=== PATIENT | male | born 1960 | race American Indian/Alaskan Native ===

== ENCOUNTER 2018-11-18 20:06 | Emergency (ER) | payer SELFPAY ==
[2018-11-18 21:00] LABS: Basophils % (Auto) 0.5 % (0.0-1.8); Eosinophils # (Auto) 0.2 K/mm3 (0.0-0.4); Eosinophils % (Auto) 2.8 % (0.0-4.3); Hemoglobin 13.9 gm/dl (11.8-15.2); Lymphocytes # (Auto) 1.7 K/mm3 (1.2-5.4); Lymphocytes % (Auto) 22.8 % (13.4-35.0); Mean Corpuscular HGB Conc 33 % (32-34); Mean Corpuscular Volume 98 fl (84-94); Monocytes # (Auto) 0.6 K/mm3 (0.0-0.8); Monocytes % (Auto) 8.4 % (0.0-7.3); Platelet Count 279 K/mm3 (140-440); Red Blood Count 4.28 M/mm3 (3.65-5.03)
[2018-11-18 21:23] LABS: Alanine Aminotransferase 18 units/L (7-56); Albumin 4.5 g/dL (3.9-5); BUN/Creatinine Ratio 27; Blood Urea Nitrogen 19 mg/dL (9-20); Calcium 9.5 mg/dL (8.4-10.2); Hemolysis Index 15
--- NOTE | 2018-11-18 22:35 | Emergency Department Report ---
ED General Adult HPI - General Chief complaint: Pain General Stated complaint: CLOGGED FEEDING TUBE Source: patient, EMS Mode of arrival: Stretcher Limitations: Other - History of Present Illness Initial comments: Patient is a 63-year-old -[place] male with a history of chronic osteoarthritis and leg pain, previous CVA and was PEG tube for parenteral feeding presents to the ED via EMS complaining of a clogged PEG tube and worsening lower extremity pain especially his knee joints. Patient states that he walks a lot since he has no place to sleep. Patient denies chest pain, abdominal pain, nausea, vomiting, dizziness, headache, change in vision, cough, traumatic injury or fall. Patient admits to having been drinking alcohol prior to arrival via EMS. MD Complaint: Clogged PEG tube -: Gradual, hour(s) (1) Location: abdomen, lower extremity Radiation: non-radiation Severity scale (0 -10): 2 Quality: dull Consistency: constant Improves with: none Worsens with: none Associated Symptoms: denies other symptoms. denies: confusion, chest pain, cough, diaphoresis, fever/chills, headaches, loss of appetite, malaise, nausea/vomiting, seizure, shortness of breath, syncope Treatments Prior to Arrival: none - Related Data Allergies Allergy/AdvReac Type Severity Reaction Status Date / Time No Known Allergies Allergy Unverified 11/18/18 20:29 ED Review of Systems ROS: Stated complaint: CLOGGED FEEDING TUBE Other details as noted in HPI Constitutional: denies: chills, fever Eyes: denies: eye pain, eye discharge, vision change ENT: denies: ear pain, throat pain Respiratory: denies: cough, shortness of breath, wheezing Cardiovascular: denies: chest pain, palpitations Endocrine: no symptoms reported Gastrointestinal: other (Clogged PEG tube). denies: abdominal pain, nausea, diarrhea Genitourinary: denies: urgency, dysuria Musculoskeletal: other (Bilateral leg pain, chronic). denies: back pain, joint swelling, arthralgia Skin: denies: rash, lesions Neurological: denies: headache, weakness, paresthesias Psychiatric: denies: anxiety, depression Hematological/Lymphatic: denies: easy bleeding, easy bruising ED Past Medical Hx - Past Medical History Previous Medical History?: Yes Hx Hypertension: Yes - Surgical History Past Surgical History?: No - Social History Smoking Status: Never Smoker Substance Use Type: Alcohol ED Physical Exam - General Limitations: Other General appearance: alert, in no apparent distress - Head Head exam: Present: atraumatic, normocephalic, normal inspection - Eye Eye exam: Present: normal appearance, PERRL, EOMI. Absent: conjunctival injection, nystagmus, periorbital swelling, periorbital tenderness Pupils: Present: normal accommodation - ENT ENT exam: Present: normal exam, normal orophraynx, mucous membranes moist, TM's normal bilaterally, normal external ear exam - Neck Neck exam: Present: normal inspection, full ROM. Absent: tenderness, meningismus, lymphadenopathy - Respiratory Respiratory exam: Present: normal lung sounds bilaterally. Absent: respiratory distress, wheezes, rales, stridor, chest wall tenderness, decreased breath sounds, prolonged expiratory - Cardiovascular Cardiovascular Exam: Present: regular rate, normal rhythm, normal heart sounds. Absent: systolic murmur, diastolic murmur, rubs, gallop - GI/Abdominal GI/Abdominal exam: Present: soft, normal bowel sounds, other (Patent PEG tube, flushing normally with no blockage). Absent: distended, tenderness, guarding, rebound - Rectal Rectal exam: Present: deferred - Extremities Exam Extremities exam: Present: normal inspection, full ROM, normal capillary refill - Back Exam Back exam: Present: normal inspection, full ROM. Absent: tenderness, CVA tenderness (R), CVA tenderness (L), muscle spasm, paraspinal tenderness - Neurological Exam Neurological exam: Present: alert, oriented X3, CN II-XII intact, normal gait, reflexes normal - Psychiatric Psychiatric exam: Present: normal affect, normal mood - Skin Skin exam: Present: warm, dry, intact, normal color. Absent: rash ED Course Vital Signs 11/18/18 20:20 Temperature 98.7 F Pulse Rate 86 Respiratory 12 Rate Blood Pressure 137/82 Blood Pressure 137/82 [Right] O2 Sat by Pulse 99 Oximetry - Reevaluation(s) Reevaluation #1: 11/18/18 22:36 This is a 63-year-old male who presented to the ED with complaint of persistent bilateral lower extremity pain which is chronic from an old stroke and osteoarthritis. Patient also came to the ED complaining of clogged PEG tube. In the ED, patient is alert and oriented 3 and is not in any distress, appears intoxicated on alcohol and asking for food. The PEG tube was flushed repeatedly, and it flashed normally with no blockage. Patient was treated for pain and basic lab test results are nonactionable including alcohol level. Patient was given food to eat and observed briefly in the ED, and was regan bsequently discharged. Patient was advised to follow-up with his primary care physician in 5-7 days for reevaluation or return to the ED immediately if symptoms get worse. ED Medical Decision Making - Lab Data Result diagrams: 11/18/18 20:48 11/18/18 20:48 - Medical Decision Making This is a 63-year-old male who presented to the ED with complaint of persistent bilateral lower extremity pain which is chronic from an old stroke and osteoarthritis. Patient also came to the ED complaining of clogged PEG tube. In the ED, patient is alert and oriented 3 and is not in any distress, appears intoxicated on alcohol and asking for food. The PEG tube was flushed repeatedly, and it flashed normally with no blockage. Patient was treated for pain and basic lab test results are nonactionable including alcohol level. Patient was given food to eat and observed briefly in the ED, and was subsequently discharged. Patient was advised to follow-up with his primary care physician in 5-7 days for reevaluation or return to the ED immediately if symptoms get worse. - Differential Diagnosis chronic osteoarthritis; Malfunctioned PEG tube Critical care attestation.: If time is entered above; I have spent that time in minutes in the direct care of this critically ill patient, excluding procedure time. ED Disposition Clinical Impression: Malfunction of percutaneous endoscopic gastrostomy (PEG) tube Chronic leg pain Qualifiers: Laterality: bilateral Qualified Code(s): M79.604 - Pain in right leg; M79.605 - Pain in left leg; G89.29 - Other chronic pain Disposition: - TO HOME OR SELFCARE Is pt being admited?: No Does the pt Need Aspirin: No Condition: Stable Instructions: Arthralgia (ED) Additional Instructions: Follow-up with your primary care physician in 5-7 days for reevaluation. Return to the ED immediately if symptoms get worse. Referrals: TERI YANG MD [Primary Care Provider] - 3-5 Days [facility] [Outside] - 3-5 Days Time of Disposition: 22:31 Print Language: MACEDONIAN
[2018-11-19 10:58] VITALS: BP 132/69
== END 2018-11-19 10:58 | disposition home or self-care (01) ==
LOC: EDBD 20:06 → ED 20:06
DX: K94.23 Gastrostomy malfunction (principal); M79.604 Pain in right leg; M79.605 Pain in left leg; G89.29 Other chronic pain; I10 Essential (primary) hypertension
CPT/HCPCS: 36415; 80053; 80320; 85025; G0480

== ENCOUNTER 2018-11-24 20:14 | Emergency (ER) | payer SELFPAY ==
--- NOTE | 2018-11-24 20:34 | Emergency Department Report ---
Blank Doc - Documentation Documentation: 58-year-old male that presents with abdominal pain in the G-tube placement. This initial assessment/diagnostic orders/clinical plan/treatment(s) is/are subject to change based on patient's health status, clinical progression and re- assessment by fellow clinical providers in the ED. Further treatment and workup at subsequent clinical providers discretion. Patient/guardians urged not to elope from the ED as their condition may be serious if not clinically assessed and managed. Initial orders include: 1- Patient sent to MAIN ED for further evaluation and treatment 2- labs 3- UA
[2018-11-24 21:36] LABS: Basophils % (Auto) 0.5 % (0.0-1.8); Eosinophils # (Auto) 0.3 K/mm3 (0.0-0.4); Eosinophils % (Auto) 4.4 % (0.0-4.3); Hematocrit 42.5 % (35.5-45.6); Hemoglobin 14.2 gm/dl (11.8-15.2); Lymphocytes # (Auto) 1.7 K/mm3 (1.2-5.4); Lymphocytes % (Auto) 24.6 % (13.4-35.0); Mean Corpuscular HGB Conc 33 % (32-34); Mean Corpuscular Volume 99 fl (84-94); Monocytes # (Auto) 0.7 K/mm3 (0.0-0.8); Monocytes % (Auto) 10.6 % (0.0-7.3); Platelet Count 241 K/mm3 (140-440); Red Blood Count 4.29 M/mm3 (3.65-5.03); Red Cell Distribution Width 14.9 % (13.2-15.2)
[2018-11-24 21:50] LABS: Alanine Aminotransferase 17 units/L (7-56); Albumin 4.3 g/dL (3.9-5); BUN/Creatinine Ratio 20; Blood Urea Nitrogen 14 mg/dL (9-20); Calcium 9.8 mg/dL (8.4-10.2); Hemolysis Index 22
[2018-11-24] MEDS ORDERED: ONDANSETRON 4 MG/2 ML INJ IV ONE (23:03)
[2018-11-24] MEDS ORDERED: CLINDAMYCIN 600 MG/50 mL 600 MG/50 ML BAG IV ONE (23:03)
[2018-11-24] MEDS ORDERED: MORPHINE 4 MG/1 ML INJ IV ONE (23:03)
--- NOTE | 2018-11-24 23:09 | Emergency Department Report ---
ED Abdominal Pain HPI - General Chief Complaint: Abdominal Pain Stated Complaint: ABDOMINAL PAIN Time Seen by Provider: 11/24/18 20:33 Source: patient, EMS Mode of arrival: Ambulatory Limitations: Physical Limitation, Other - History of Present Illness Initial Comments: Patient is 58 years old male with history of hypertension and dementia. Patient has a PEG tube. Patient presented to the ER complaining of abdominal pain for the last 2 weeks associated with redness and mild discharge around the tube. Patient denied any fever or chills. No nausea or vomiting. Then at other complaint. MD Complaint: abdominal pain Location: LUQ, LLQ Radiation: none Severity: moderate Severity scale (0 -10): 5 Consistency: intermittent - Related Data Allergies Allergy/AdvReac Type Severity Reaction Status Date / Time No Known Allergies Allergy Verified 11/24/18 20:20 ED Review of Systems ROS: Stated complaint: ABDOMINAL PAIN Other details as noted in HPI Comment: All other systems reviewed and negative Constitutional: denies: chills, fever Respiratory: denies: cough, shortness of breath, SOB with exertion, SOB at rest, wheezing Cardiovascular: denies: chest pain, palpitations ED Past Medical Hx - Past Medical History Hx Hypertension: Yes Hx Dementia: Yes - Social History Smoking Status: Never Smoker Substance Use Type: None ED Physical Exam - General Limitations: Physical Limitation, Other General appearance: alert, in no apparent distress - Head Head exam: Present: atraumatic, normocephalic, normal inspection - Eye Eye exam: Present: normal appearance - ENT ENT exam: Present: normal exam, normal orophraynx, mucous membranes moist - Neck Neck exam: Present: normal inspection, full ROM. Absent: tenderness, meningismus, lymphadenopathy, thyromegaly - Respiratory Respiratory exam: Present: normal lung sounds bilaterally - Cardiovascular Cardiovascular Exam: Present: regular rate, normal rhythm, normal heart sounds - GI/Abdominal GI/Abdominal exam: Present: soft, normal bowel sounds. Absent: distended, tenderness, guarding, rebound, rigid, organomegaly, mass, bruit, pulsatile mass, hernia - Extremities Exam Extremities exam: Present: normal inspection, full ROM, normal capillary refill - Back Exam Back exam: Present: normal inspection, full ROM. Absent: CVA tenderness (R), CVA tenderness (L), muscle spasm, paraspinal tenderness, vertebral tenderness - Neurological Exam Neurological exam: Present: alert, oriented X3, CN II-XII intact - Psychiatric Psychiatric exam: Present: normal mood - Skin Skin exam: Present: warm, intact, normal color ED Course Vital Signs 11/24/18 11/24/18 11/24/18 20:21 20:34 22:17 Temperature 97.6 F 97.6 F 97.9 F Pulse Rate 92 H 90 81 Respiratory 18 18 17 Rate Blood Pressure 133/78 133/88 Blood Pressure 160/91 [Left] O2 Sat by Pulse 97 98 100 Oximetry 11/24/18 11/24/18 11/24/18 22:30 23:00 23:25 Temperature Pulse Rate 76 77 95 H Respiratory 12 10 L 17 Rate Blood Pressure 139/78 138/78 138/78 Blood Pressure [Left] O2 Sat by Pulse 98 98 99 Oximetry 11/24/18 11/25/18 23:30 00:01 Temperature Pulse Rate 80 73 Respiratory 13 10 L Rate Blood Pressure 140/74 156/80 Blood Pressure [Left] O2 Sat by Pulse 98 97 Oximetry ED Medical Decision Making - Lab Data Result diagrams: 11/24/18 21:17 11/24/18 21:17 - Radiology Data Radiology results: report reviewed - Medical Decision Making Patient is 58 years old male with history of hypertension and dementia. Patient has a PEG tube. Patient presented to the ER complaining of abdominal pain for the last 2 weeks associated with redness and mild discharge around the tube. Patient denied any fever or chills. No nausea or vomiting. Then at other complaint. Labs reviewed and is unremarkable. CT abdomen and pelvis showed no acute abnormalities. Patient treated with clindamycin for cellulitis on his PEG tube. Patient morphine and Zofran for pain. Patient stated that his symptoms much better. Patient given prescription for clindamycin Ultram and Zofran and advised to follow-up with his primary care physician in the next 2-3 days and to attend to the ER if symptoms are not improved. Critical care attestation.: If time is entered above; I have spent that time in minutes in the direct care of this critically ill patient, excluding procedure time. ED Disposition Clinical Impression: Abdominal pain, Cellulitis Disposition: DC-01 TO HOME OR SELFCARE Is pt being admited?: No Condition: Stable Instructions: Abdominal Pain (ED), Cellulitis (ED) Referrals: TERI YANG MD [Primary Care Provider] - 3-5 Days
--- NOTE | 2018-11-25 01:00 | Cat Scan Report ---
CT ABDOMEN AND PELVIS WITH CONTRAST INDICATION / CLINICAL INFORMATION: abdominal pain. TECHNIQUE: Axial CT images were obtained through the abdomen and pelvis after 100 mL Omnipaque [address] scans at this location are performed using CT dose reduction for ALARA by means of automated exposure control. COMPARISON: None available. FINDINGS: LOWER CHEST: Bilateral hilar adenopathy is noted. There is a punctate calcification within one of the enlarged right hilar nodes. LIVER: No significant abnormality. BILIARY SYSTEM: No significant abnormality. PANCREAS: No significant abnormality. SPLEEN: No significant abnormality. ADRENALS: No significant abnormality. KIDNEYS and URETERS: Small exophytic cyst noted in the left upper pole. STOMACH / BOWEL: Gastrostomy tube in place with balloon in the distal gastric body. No significant ab normality. The appendix is not definitively seen, but there are no CT findings to suggest acute appen dicitis. PERITONEUM: No free fluid. No free air. No fluid collection. LYMPH NODES: No significant adenopathy. VASCULAR STRUCTURES: No significant abnormality. URINARY BLADDER: No significant abnormality. REPRODUCTIVE ORGANS: No significant abnormality. ADDITIONAL FINDINGS: None. SKELETAL SYSTEM: No significant abnormality. IMPRESSION: 1. No acute process identified within the abdomen or pelvis to explain patient's abdominal pain. 2. Bilateral hilar adenopathy. At least one of the enlarged right hilar lymph nodes contains a puncta te calcification, suggesting that this represents sequela of prior granulomatous disease. However, co nsider nonemergent chest CT for confirmation. Signer Name: Shelli Keller MD Signed: 11/25/2018 12:56 AM Workstation Name: [id number]
[2018-11-25 03:49] VITALS: BP 143/81
== END 2018-11-25 03:55 | disposition home or self-care (01) ==
LOC: ED 20:14
DX: L03.311 Cellulitis of abdominal wall (principal); I10 Essential (primary) hypertension; F03.90 Unspecified dementia, unspecified severity, without behavioral disturbance, psychotic disturbance, mood disturbance, and anxiety
CPT/HCPCS: 36415; 74177; 80053; 83690; 85025; 96365; 96375; 99284; J2270; J2405; Q9967

== ENCOUNTER 2019-02-15 11:00 | Emergency (ER) | payer SELFPAY ==
[2019-02-15 11:35] VITALS: BP 138/74
--- NOTE | 2019-02-15 11:40 | Emergency Department Report ---
ED General Adult HPI - General Chief complaint: Abdominal Pain Stated complaint: GENERAL WEAKNESS Time Seen by Provider: 02/15/19 11:22 Source: patient, EMS Mode of arrival: Ambulatory Limitations: No Limitations - History of Present Illness Initial comments: 58 yo M, hx of CVA in the past presents to ED with multiple complaints. Pt states he is homeless. States he sometimes stays with his daughter, sometimes sleeps on the street, and sometimes spends the night at a friend's house. Pt states he spent the night with a friend last night. States he called 911 from his friend's house because he wanted to leave. Pt states he called EMS and told them that he has had 3 strokes before and that he doesn't want to have another stroke. Pt reports baseline mild left-sided weakness and slurred speech from his previous CVA. He states he does not feel like he is having another stroke. Upon ED arrival, pt reported to triage nurse that he called EMS because he was having abdominal pain that resolved with bowel movement. Pt denies abdominal pain currently. While I was speaking with the patient, pt saw and pointed to a meal tray on the counter and stated, "That's what I came for right there." Patient states he wants something to eat. -: unknown - Related Data Previous Rx's Medication Instructions Recorded Last Taken Type Clindamycin [Clindamycin CAP] 300 mg PO Q8H #30 cap 11/25/18 Unknown Rx Ondansetron [Zofran Odt] 4 mg PO Q8HR PRN #14 tab.rapdis 11/25/18 Unknown Rx traMADoL [Ultram 50 MG tab] 50 mg PO Q4HR PRN #14 tablet 11/25/18 Unknown Rx Allergies Allergy/AdvReac Type Severity Reaction Status Date / Time No Known Allergies Allergy Verified 02/15/19 11:20 ED Review of Systems ROS: Stated complaint: GENERAL WEAKNESS Other details as noted in HPI Comment: All other systems reviewed and negative Gastrointestinal: abdominal pain. denies: nausea, vomiting ED Past Medical Hx - Past Medical History Previous Medical History?: Yes Hx Hypertension: Yes Hx CVA: Yes (x3) Hx Dementia: Yes - Social History Smoking Status: Current Every Day Smoker Substance Use Type: Alcohol - Medications Home Medications: Home Medications Medication Instructions Recorded Confirmed Last Taken Type Clindamycin [Clindamycin CAP] 300 mg PO Q8H #30 cap 11/25/18 Unknown Rx Ondansetron [Zofran Odt] 4 mg PO Q8HR PRN #14 tab.rapdis 11/25/18 Unknown Rx traMADoL [Ultram 50 MG tab] 50 mg PO Q4HR PRN #14 tablet 11/25/18 Unknown Rx ED Physical Exam - General Limitations: No Limitations General appearance: alert, in no apparent distress, other (appears unkempt) - Head Head exam: Present: atraumatic, normocephalic - Eye Eye exam: Present: normal appearance, EOMI - ENT ENT exam: Present: mucous membranes moist - Neck Neck exam: Present: normal inspection - Respiratory Respiratory exam: Present: normal lung sounds bilaterally. Absent: respiratory distress - Cardiovascular Cardiovascular Exam: Present: regular rate, normal rhythm - GI/Abdominal GI/Abdominal exam: Present: soft. Absent: distended, tenderness - Extremities Exam Extremities exam: Present: normal inspection, full ROM - Neurological Exam Neurological exam: Present: alert, oriented X3, normal gait. Absent: CN II-XII intact (speech is slurred), motor sensory deficit (no obvious deficits, no drift present in extremities) - Psychiatric Psychiatric exam: Present: normal affect, normal mood - Skin Skin exam: Present: warm, dry, intact, normal color ED Course Vital Signs 02/15/19 11:35 Temperature 97.7 F Pulse Rate 67 Respiratory 17 Rate Blood Pressure 138/74 [Left] O2 Sat by Pulse 99 Oximetry ED Medical Decision Making - Medical Decision Making - pt currently has no complaints except that he would like something to eat - exam is unremarkable, other than reported baseline deficits from previous stroke - vitals are normal - will discharge at this time Critical care attestation.: If time is entered above; I have spent that time in minutes in the direct care of this critically ill patient, excluding procedure time. ED Disposition Clinical Impression: Homelessness Disposition: DC-01 TO HOME OR SELFCARE Is pt being admited?: No Condition: Stable Referrals: PRIMARY CARE [Primary Care Provider] - 3-5 Days [facility] [Provider Group] - 3-5 Days Time of Disposition: 11:48
== END 2019-02-15 12:22 | disposition home or self-care (01) ==
LOC: ED 11:00
DX: R53.1 Weakness (principal); R47.81 Slurred speech; I10 Essential (primary) hypertension; F03.90 Unspecified dementia, unspecified severity, without behavioral disturbance, psychotic disturbance, mood disturbance, and anxiety; F17.200 Nicotine dependence, unspecified, uncomplicated; Z79.899 Other long term (current) drug therapy; Z86.73 Personal history of transient ischemic attack (TIA), and cerebral infarction without residual deficits; Z59.0 Homelessness

== ENCOUNTER 2019-05-23 10:18 | Emergency (ER) | payer MEDICAID ==
[2019-05-23 10:24] VITALS: BP 169/97
== END 2019-05-23 11:08 | disposition left against medical advice (07) ==
LOC: ED 10:18
DX: L98.8 Other specified disorders of the skin and subcutaneous tissue (principal); Z53.21 Procedure and treatment not carried out due to patient leaving prior to being seen by health care provider

== ENCOUNTER 2019-06-08 09:03 | Emergency (ER) | payer MEDICAID ==
--- NOTE | 2019-06-08 09:16 | Emergency Department Report ---
Chief Complaint: Extremity Injury, Lower Stated Complaint: LEFT LEG PAIN Time Seen by Provider: 06/08/19 09:14 - HPI History of Present Illness: LLE PAIN FROM INJURY LONG TIME AGO TOOK NO MEDS AT HOME IN USUAL STATE OF HEALTH OLD CVA WALKS WITH CANE - ROS Review of Systems: NO NEW SYMPTOMS NO CP NO SOB NO CHILLS NO FEVER VSS - Exam Vital Signs: Vital Signs 06/08/19 09:10 Temperature 98.0 F Pulse Rate 86 Respiratory 18 Rate Blood Pressure 123/73 O2 Sat by Pulse 99 Oximetry Physical Exam: ALERT/ORIENTED WALKS WITH CANE CO L THIGH PAIN AMBULATORY N VS SLURRED SPEECH- OLD CVA NO NEW DEFICIT MSE screening note: Focused history and physical exam performed. Due to findings the following was ordered: NO LIFE THREAT MSE COMPLETED Patient discussed with doctor:: JUVENTINO MCFARLAND ED Disposition for MSE Condition: Stable Referrals: PRIMARY CARE, [Primary Care Provider] - 3-5 Days
[2019-06-08 09:18] VITALS: BP 123/73
== END 2019-06-08 10:15 | disposition left against medical advice (07) ==
LOC: ED 09:03
DX: M79.652 Pain in left thigh (principal)
CPT/HCPCS: 99281

== ENCOUNTER 2019-12-11 19:49 | Emergency (ER) | payer MEDICAID ==
[2019-12-11 21:57] VITALS: BP 135/85
[2019-12-11 23:12] LABS: Basophils # (Auto) 0.1 K/mm3 (0.0-0.1); Basophils % (Auto) 0.8 % (0.0-1.8); Eosinophils # (Auto) 0.4 K/mm3 (0.0-0.4); Eosinophils % (Auto) 4.6 % (0.0-4.3); Hematocrit 39.6 % (35.5-45.6); Hemoglobin 13.4 gm/dl (11.8-15.2); Lymphocytes # (Auto) 1.6 K/mm3 (1.2-5.4); Lymphocytes % (Auto) 19.3 % (13.4-35.0); Mean Corpuscular HGB Conc 34 % (32-34); Mean Corpuscular Volume 98 fl (84-94); Monocytes # (Auto) 0.7 K/mm3 (0.0-0.8); Monocytes % (Auto) 8.7 % (0.0-7.3); Platelet Count 234 K/mm3 (140-440); Red Blood Count 4.06 M/mm3 (3.65-5.03); Red Cell Distribution Width 14.2 % (13.2-15.2)
[2019-12-11 23:32] LABS: Blood Urea Nitrogen 14 mg/dL (9-20); Calcium 10.3 mg/dL (8.4-10.2); Hemolysis Index 22
[2019-12-11 23:43] LABS: BUN/Creatinine Ratio 20
--- NOTE | 2019-12-12 06:32 | Emergency Department Report ---
Vomiting/Diarrhea - HPI Chief Complaint: Alcohol Stated Complaint: RIGHT SHOULDER PPAIN/ ETOH Time Seen by Provider: 12/12/19 06:08 ED Review of Systems ROS: Stated complaint: RIGHT SHOULDER PPAIN/ ETOH Other details as noted in HPI ED Past Medical Hx - Past Medical History Previous Medical History?: Yes Hx Hypertension: Yes Hx CVA: Yes (x3) Hx Dementia: Yes - Surgical History Past Surgical History?: No - Social History Smoking Status: Current Every Day Smoker Substance Use Type: Alcohol - Medications Home Medications: Home Medications Medication Instructions Recorded Confirmed Last Taken Type Clindamycin [Clindamycin CAP] 300 mg PO Q8H #30 cap 11/25/18 Unknown Rx Ondansetron [Zofran Odt] 4 mg PO Q8HR PRN #14 tab.rapdis 11/25/18 Unknown Rx traMADoL [Ultram 50 MG tab] 50 mg PO Q4HR PRN #14 tablet 11/25/18 Unknown Rx Ibuprofen [Motrin 600 MG tab] 600 mg PO Q8H PRN #20 tablet 11/08/19 Unknown Rx Vomiting Diarrhea Exam - Exam General: Vital signs noted. No distress. Alert and acting appropriately. Neurologic: Alert and oriented, no deficits. Musculoskeletal: Unremarkable. ED Course Vital Signs 12/11/19 20:23 Temperature 98.5 F Pulse Rate 94 H Respiratory 18 Rate Blood Pressure 135/85 O2 Sat by Pulse 99 Oximetry ED Medical Decision Making - Lab Data Result diagrams: 12/11/19 22:44 12/11/19 22:44 Critical care attestation.: If time is entered above; I have spent that time in minutes in the direct care of this critically ill patient, excluding procedure time. ED Disposition Condition: Stable Referrals: PRIMARY MD CLARE [Primary Care Provider] - 3-5 Days
--- NOTE | 2019-12-12 07:13 | Emergency Department Report ---
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 Patient states shoulder is been hurting for the last several days. He was brought in by paramedics also because he was in a public space and potentially drinking alcohol. Brought in by police. Patient is denying any falls or recent trauma. Patient is a poor historian secondary to his previous CVA - Related Data Previous Rx's Medication Instructions Recorded Last Taken Type Clindamycin [Clindamycin CAP] 300 mg PO Q8H #30 cap 11/25/18 Unknown Rx Ondansetron [Zofran Odt] 4 mg PO Q8HR PRN #14 tab.rapdis 11/25/18 Unknown Rx traMADoL [Ultram 50 MG tab] 50 mg PO Q4HR PRN #14 tablet 11/25/18 Unknown Rx Ibuprofen [Motrin 600 MG tab] 600 mg PO Q8H PRN #20 tablet 11/08/19 Unknown Rx Allergies Allergy/AdvReac Type Severity Reaction Status Date / Time No Known Allergies Allergy Verified 02/15/19 11:20 ED Review of Systems ROS: Stated complaint: RIGHT SHOULDER PPAIN/ ETOH Other details as noted in HPI Comment: All other systems reviewed and negative ED Past Medical Hx - Past Medical History Previous Medical History?: Yes Hx Hypertension: Yes Hx CVA: Yes (x3) Hx Dementia: Yes - Surgical History Past Surgical History?: No - Social History Smoking Status: Current Every Day Smoker Substance Use Type: Alcohol - Medications Home Medications: Home Medications Medication Instructions Recorded Confirmed Last Taken Type Clindamycin [Clindamycin CAP] 300 mg PO Q8H #30 cap 11/25/18 Unknown Rx Ondansetron [Zofran Odt] 4 mg PO Q8HR PRN #14 tab.rapdis 11/25/18 Unknown Rx traMADoL [Ultram 50 MG tab] 50 mg PO Q4HR PRN #14 tablet 11/25/18 Unknown Rx Ibuprofen [Motrin 600 MG tab] 600 mg PO Q8H PRN #20 tablet 11/08/19 Unknown Rx ED Physical Exam - General Limitations: No Limitations General appearance: alert, in no apparent distress - Head Head exam: Present: atraumatic, normocephalic - Eye Eye exam: Present: normal appearance, PERRL, EOMI - ENT ENT exam: Present: mucous membranes moist - Neck Neck exam: Present: normal inspection - Respiratory Respiratory exam: Present: normal lung sounds bilaterally. Absent: respiratory distress, wheezes, rales, rhonchi - Cardiovascular Cardiovascular Exam: Present: regular rate, normal rhythm. Absent: systolic murmur, diastolic murmur, rubs, gallop - GI/Abdominal GI/Abdominal exam: Present: soft, normal bowel sounds - Rectal Rectal exam: Present: deferred - Extremities Exam Extremities exam: Present: normal inspection - Back Exam Back exam: Present: normal inspection - Neurological Exam Neurological exam: Present: alert, oriented X3 - Psychiatric Psychiatric exam: Present: normal affect, normal mood - Skin Skin exam: Present: warm, dry, intact, normal color. Absent: rash ED Course Vital Signs 12/11/19 20:23 Temperature 98.5 F Pulse Rate 94 H Respiratory 18 Rate Blood Pressure 135/85 O2 Sat by Pulse 99 Oximetry ED Medical Decision Making - Lab Data Result diagrams: 12/11/19 22:44 12/11/19 22:44 Lab Results 12/11/19 12/11/19 12/11/19 Range/Units 22:44 22:44 22:44 WBC 8.5 (4.5-11.0) K/mm3 RBC 4.06 (3.65-5.03) M/mm3 Hgb 13.4 (11.8-15.2) gm/dl Hct 39.6 (35.5-45.6) % MCV 98 H (84-94) fl MCH 33 H (28-32) pg MCHC 34 (32-34) % RDW 14.2 (13.2-15.2) % Plt Count 234 (140-440) K/mm3 Lymph % (Auto) 19.3 (13.4-35.0) % Simpson % (Auto) 8.7 H (0.0-7.3) % Eos % (Auto) 4.6 H (0.0-4.3) % Baso % (Auto) 0.8 (0.0-1.8) % Lymph # (Auto) 1.6 (1.2-5.4) K/mm3 Simpson # (Auto) 0.7 (0.0-0.8) K/mm3 Eos # (Auto) 0.4 (0.0-0.4) K/mm3 Baso # (Auto) 0.1 (0.0-0.1) K/mm3 Seg Neutrophils % 66.6 (40.0-70.0) % Seg Neutrophils # 5.6 (1.8-7.7) K/mm3 Sodium 143 (137-145) mmol/L Potassium 4.5 (3.6-5.0) mmol/L Chloride 102.8 (98-107) mmol/L Carbon Dioxide 24 (22-30) mmol/L Anion Gap 21 mmol/L BUN 14 (9-20) mg/dL Creatinine 0.7 L (0.8-1.3) mg/dL Estimated GFR > 60 ml/min BUN/Creatinine Ratio 20 % Glucose 101 H (75-100) mg/dL Calcium 10.3 H (8.4-10.2) mg/dL Plasma/Serum Alcohol < 0.01 (0-0.07) % - Medical Decision Making Patient moving all extremities and there is no acute abnormality to either of his shoulders. Patient encouraged to use Motrin for pain and discharged. Critical care attestation.: If time is entered above; I have spent that time in minutes in the direct care of this critically ill patient, excluding procedure time. ED Disposition Clinical Impression: Chronic arthralgias of knees and hips, Arthralgia Disposition: TO HOME OR SELFCARE Is pt being admited?: No Does the pt Need Aspirin: No Condition: Stable Additional Instructions: Please take [id number] Motrin for pain Referrals: TERI YANG MD [Referring] - 3-5 Days Time of Disposition: 07:14
== END 2019-12-12 08:13 | disposition home or self-care (01) ==
LOC: ED 19:49
DX: M25.562 Pain in left knee (principal); M25.561 Pain in right knee; M25.552 Pain in left hip; M25.551 Pain in right hip; G89.29 Other chronic pain; I10 Essential (primary) hypertension; F03.90 Unspecified dementia, unspecified severity, without behavioral disturbance, psychotic disturbance, mood disturbance, and anxiety; F17.200 Nicotine dependence, unspecified, uncomplicated; Z86.73 Personal history of transient ischemic attack (TIA), and cerebral infarction without residual deficits; Z79.1 Long term (current) use of non-steroidal anti-inflammatories (NSAID); Z79.2 Long term (current) use of antibiotics; Z79.899 Other long term (current) drug therapy
CPT/HCPCS: 36415; 80048; 80320; 85025; G0480